=== PATIENT | female | born 1975 | race Hispanic/Latino ===

== ENCOUNTER 2017-08-29 13:18 | Outpatient (CLI) | payer BC ==
[2017-08-29 13:40] LABS: Basophils % (Auto) 0.4 % (0.0-1.8); Hematocrit 38.1 % (30.3-42.9); Lymphocytes # (Auto) 1.5 K/mm3 (1.2-5.4); Lymphocytes % (Auto) 25.2 % (13.4-35.0); Mean Corpuscular HGB Conc 32 % (30-34); Mean Corpuscular Volume 79 fl (79-97); Monocytes # (Auto) 0.3 K/mm3 (0.0-0.8); Monocytes % (Auto) 5.4 % (0.0-7.3); Platelet Count 247 K/mm3 (140-440); Red Cell Distribution Width 15.5 % (13.2-15.2)
[2017-08-29 13:42] LABS: Mean Corpuscular Hemoglobin 25 pg (28-32)
[2017-08-29 14:02] LABS: Bilirubin,Urine NEG (Negative); Blood,Urine NEG (Negative); Color,Urine Straw (Yellow); Protein,Urine <15 mg/dL mg/dL (Negative); Urobilinogen,Urine < 2.0 mg/dL (<2.0); WBC,Urine < 1.0 /HPF (0.0-6.0)
[2017-08-29 14:08] LABS: Alanine Aminotransferase 10 units/L (7-56); Albumin 4.4 g/dL (3.9-5); BUN/Creatinine Ratio 25; Blood Urea Nitrogen 15 mg/dL (7-17); Calcium 9.7 mg/dL (8.4-10.2); Hemolysis Index 4
[2017-08-29 14:16] LABS: Free T4 (Free Thyroxine) 1.06 ng/dL (0.76-1.46)
== END 2017-08-29 13:19 | disposition home or self-care (01) ==
LOC: LAB 13:18
PROVIDERS: ATTEND Specialist
DX: G93.2 Benign intracranial hypertension (principal); F31.81 Bipolar II disorder; R94.5 Abnormal results of liver function studies; Z79.899 Other long term (current) drug therapy
CPT/HCPCS: 36415; 80053; 80178; 81001; 82164; 82306; 82607; 83036; 83921; 84439; 84443; 84480; 85025; 85652; 86038; 86225; 86334; 86592; 86618